=== PATIENT | female | born 1930 | race Caucasian/White ===

== ENCOUNTER 2018-01-09 10:04 | Emergency (ER) | payer OTHER, BC ==
[~2018-01-09] VITALS: Ht 157.5 cm; Wt 58.3 kg
[2018-01-09 11:04] LABS: HEMATOCRIT 39.6 % (36.0-46.0); HEMOGLOBIN 12.9 G/DL (11.9-15.5); MCH 29.9 PG (29.0-34.0); MCHC 32.6 G/DL (30.0-36.0); MCV 91.7 FL (83-99); PLATELET COUNT 82 K/uL (156-360); RBC DIS.WIDTH-CV 12.4 % (11.8-14.6); RBC DIS.WIDTH-SD 42.1 % (39-53); RED BLOOD COUNT 4.32 M/uL (3.80-5.20); WHITE BLOOD COUNT 3.6 K/uL (4.1-10.2)
[2018-01-09 11:12] LABS: ALBUMIN 4.1 g/dL (3.2-4.8)
[2018-01-09 11:13] LABS: CHLORIDE 107 mEq/L (99-109); POTASSIUM 4.2 mEq/L (3.7-5.4); SODIUM 139 mEq/L (136-147)
[2018-01-09 11:15] LABS: GLUCOSE 107 mg/dL (70-99); TOTAL PROTEIN 6.6 g/dL (6.4-8.3)
[2018-01-09 11:17] LABS: TOTAL BILIRUBIN 1.4 mg/dL (0.0-1.0)
[2018-01-09 11:18] LABS: ALKALINE PHOSPHATASE 68 IU/L (3-129)
[2018-01-09 11:19] LABS: GFR ESTIMATE (CALCULATED) 56 mL/min/
[2018-01-09 11:20] LABS: AST (GOT) 26 IU/L (2-34); UREA NITROGEN (BUN) 21 mg/dL (9-23)
[2018-01-09 11:21] LABS: ALT (GPT) 30 IU/L (3-49)
[2018-01-09 11:24] LABS: TROP-I INTERPRETATION NEGATIVE; TROPONIN-I < 0.01 ng/mL (0.0-0.30)
[2018-01-09] MEDS ORDERED: ZOFRAN ODT4 MG PO (12:38)
[2018-01-09 13:08] VITALS: BP 146/56
== END 2018-01-09 13:14 | disposition home or self-care (01) ==
LOC: EME 10:04
PROVIDERS: Nurse Practitioner Family
DX: R11.2 Nausea with vomiting, unspecified (principal); R19.7 Diarrhea, unspecified; I10 Essential (primary) hypertension; E78.5 Hyperlipidemia, unspecified; Z95.2 Presence of prosthetic heart valve
CPT/HCPCS: 80053; 81003; 84484; 85027; 99281; 99285; J2405; J7030